=== PATIENT | female | born 2000 | race Two or more races ===

== ENCOUNTER 2025-06-16 11:34 | Emergency (ER) | payer BC, MEDICAID ==
[~2025-06-16] VITALS: Ht 182.9 cm; Wt 106.6 kg
[2025-06-16 11:42] VITALS: BP 139/74
[2025-06-16 12:00] LABS: *BILIRUBIN,URIN NEGATIVE (NEGATIVE); *BLOOD, URINE NEGATIVE (NEGATIVE); *CLARITY,URINE CLEAR (CLEAR); *COLOR,URINE YELLOW (YELLOW); *KETONES,URINE NEGATIVE (NEGATIVE); *PROTEIN,URINE NEGATIVE (NEGATIVE); *UROBILINOGEN,URINE 0.2 E.U./dl (NORMAL); LEUKOCYTE ESTERASE ,URINE NEGATIVE (NEGATIVE); NITRITE, URINE POSITIVE (NEGATIVE); UGLUCOSE NEGATIVE (NEGATIVE)
[2025-06-16 12:03] LABS: *URINE HCG, QUAL NEGATIVE (NEGATIVE)
[2025-06-16] MEDS ORDERED: FOSFOMYCIN TROMETHAMINE 3 GM PACKET ONE (12:58)
[2025-06-16] MEDS ORDERED: FLUCONAZOLE 100 MG TABLET ONE (12:59)
[2025-06-16] MEDS: FLUCONAZOLE 100 MG TABLET PO ONE (13:01)
[2025-06-16] MEDS: FOSFOMYCIN TROMETHAMINE 3 GM PACKET PO ONE (13:01)
[2025-06-16 13:25] VITALS: BP 125/69; O2SAT 97
== END 2025-06-16 13:20 | disposition home or self-care (01) ==
LOC: ER 11:41
DX: N39.0 Urinary tract infection, site not specified (principal)
CPT/HCPCS: 84703; 87077; 87086; A4606; A4663